=== PATIENT | male | born 1950 | race Caucasian/White ===

== ENCOUNTER → 2017-01-24 | Day surgery (SDC) | payer BC, MEDICARE ==
[~2017-01-24] MED LIST: Lactated Ringers 1,000 ML IV SCH; Propofol 200 MG/20 ML SDV IV ONE
[2017-01-24 08:37] VITALS: BP 124/77
--- NOTE | 2017-01-24 11:37 | OR ---
DATE OF OPERATION: 01/24/2017 PREOPERATIVE DIAGNOSIS: FAMILY HISTORY OF COLON CANCER. POSTOPERATIVE DIAGNOSIS: FAMILY HISTORY OF COLON CANCER. SURGEON: Nico Winchester MD PROCEDURE: FULL LENGTH COLONOSCOPY WITH POLYP REMOVAL X2. ANESTHESIA: IT SUPPORT MANAGER. COMPLICATIONS: None. SPECIMEN: Hyperplastic polyps x2, rectosigmoid junction. FINDINGS: 1. Full-length colonoscopy. 2. [id number] sigmoid diverticulosis. 3. Two small hyperplastic polyps, early rectal vault. RECOMMENDATIONS: Followup colonoscopy in 5 years. INDICATIONS: The patient has a family history of colon cancer in his father. He is due for a 5-year followup colonoscopy. DESCRIPTION OF PROCEDURE: The patient was prepped and draped, placed in the left lateral decubitus position. A lubricated Olympus colonoscope was inserted and easily advanced to the cecum. Direct visualization of the ileocecal valve along with the appendiceal orifice was accomplished. Bowel prep was adequate. Upon withdrawal of the scope the cecum, ascending, transverse, and descending colon were completely benign. The patient has fairly severe diverticular disease extending throughout the sigmoid and into the rectosigmoid junction. No acute inflammatory changes were seen. No signs of any vascular abnormality, bleeding sites, or colitis. No polyps were seen throughout the entire colon up until the early proximal rectal vault, there were two small hyperplastic polyps removed with forceps in their entirety. Retroflexion of the scope in the rectum showed no anal lesions. Air was then suctioned and the scope was removed without complications. MANAN/ROBBIE /[id number]
== END ==
LOC: CC.SDS 06:52
PROVIDERS: ATTEND Family Medicine
DX: K63.5 Polyp of colon (principal); K57.30 Diverticulosis of large intestine without perforation or abscess without bleeding; N40.1 Benign prostatic hyperplasia with lower urinary tract symptoms; R35.1 Nocturia; E78.5 Hyperlipidemia, unspecified; E55.9 Vitamin D deficiency, unspecified; Z79.82 Long term (current) use of aspirin; Z79.899 Other long term (current) drug therapy; R97.20 Elevated prostate specific antigen [PSA]; Z90.49 Acquired absence of other specified parts of digestive tract; Z98.890 Other specified postprocedural states; F17.210 Nicotine dependence, cigarettes, uncomplicated
CPT/HCPCS: 45380; J2704; J7120

== ENCOUNTER → 2022-02-01 | Day surgery (SDC) | payer BC, MEDICARE ==
[~2022-02-01] MED LIST changes: -Lactated Ringers 1,000 ML IV SCH; -Propofol 200 MG/20 ML SDV IV ONE; +Propofol 200 MG/20 ML SDV ONE; +fentaNYL 100 MCG/2 ML SDV ONE
[2022-02-01] MEDS: Lactated Ringers 1,000 ML IV SCH (07:51)
[2022-02-01 09:54] VITALS: PULSE 55
[2022-02-01 09:55] VITALS: BP 104/60
== END ==
LOC: CC.SDS 07:33
PROVIDERS: ATTEND Family Medicine
DX: Z12.11 Encounter for screening for malignant neoplasm of colon (principal); K57.30 Diverticulosis of large intestine without perforation or abscess without bleeding; K64.9 Unspecified hemorrhoids; E78.5 Hyperlipidemia, unspecified; E55.9 Vitamin D deficiency, unspecified; C61 Malignant neoplasm of prostate; F17.210 Nicotine dependence, cigarettes, uncomplicated; L82.1 Other seborrheic keratosis; Z71.6 Tobacco abuse counseling; Z98.890 Other specified postprocedural states; Z90.49 Acquired absence of other specified parts of digestive tract; Z79.899 Other long term (current) drug therapy; Z80.0 Family history of malignant neoplasm of digestive organs
CPT/HCPCS: J7120

== ENCOUNTER 2023-10-10 12:15 | Emergency (ER) | payer BC ==
[2023-10-10 12:37] VITALS: PULSE 101
[2023-10-10] MEDS ORDERED: fentaNYL 50 MCG/ML SDV IVPUSH ONE (12:43)
[2023-10-10] MEDS ORDERED: Sodium Chloride 0.9% 10 ML Syringe FLUSH PRN (12:43)
[2023-10-10 15:58] VITALS: BP 128/88
== END 2023-10-10 13:45 | disposition home or self-care (01) ==
LOC: CC.ED 12:15
DX: S53.115A Anterior dislocation of left ulnohumeral joint, initial encounter (principal); W00.0XXA Fall on same level due to ice and snow, initial encounter; Y93.01 Activity, walking, marching and hiking; Y92.79 Other farm location as the place of occurrence of the external cause
CPT/HCPCS: 23650; 73020-LT; 73030-LT; 99283; 99283-25; J3010